=== PATIENT | female | born 1985 | race African-American/Black ===

== ENCOUNTER → 2020-05-19 | Outpatient (CLI) | payer BC ==
[~2020-05-19] MED LIST: ACETAMINOPHEN325 M1 PO; ALEVE220 M1 PO; AMITIZA8 MCG PO; BISACODYL SUPP10 MG RECTAL; ENDOCET 5-3251 EACH PO; IBUPROFEN 600600 M1 PO; NOHOMEMEDICATIONS; SIMETHICON CHEW80 M1 PO
== END ==
LOC: SJCVCIMAG 14:16
PROVIDERS: ATTEND Podiatrist Foot & Ankle Surgery
DX: M79.89 Other specified soft tissue disorders (principal); M79.604 Pain in right leg